=== PATIENT | female | born 1965 | race Two or more races ===

== ENCOUNTER 2019-06-10 07:37 | Day surgery (SDC) | payer OTHER ==
[~2019-06-10] VITALS: Ht 160 cm; Wt 63.5 kg
[2019-06-10] VITALS (9 sets, daily range): BP systolic 83–116; BP diastolic 49–81
[~2019-06-10 07:37] MED LIST: ceFAZolin sod 1gm in D5W 55ml IVPB ONE; celeBREX 200mg Cap **SURGERY PATIENTS ONLY ORAL ONE; oxyCONTIN 20mg tab ORAL ONE
[2019-06-10] MEDS ORDERED: celeBREX 200mg Cap **SURGERY PATIENTS ONLY ORAL ONE (08:58)
[2019-06-10] MEDS ORDERED: oxyCONTIN 20mg tab ORAL ONE (08:58)
[2019-06-10] MEDS ORDERED: fentaNYL 100 mcg/2 mL IV ONE (09:54)
[2019-06-10] MEDS ORDERED: Midazolam 2mg/2ml Inj ONE (09:55)
[2019-06-10] MEDS ORDERED: Ketorolac 30mg Inj ONE (09:55)
[2019-06-10] MEDS ORDERED: Propofol 200mg/20ml IV ONE (09:55)
[2019-06-10] MEDS ORDERED: Lidocaine 1% MPF 10mg/ml 5ml ONE (09:55)
[2019-06-10] MEDS ORDERED: LR 1000ml 1,000 ML IVLG SCH (10:07)
--- NOTE | 2019-06-10 10:07 | Anethesia Preoperative Eval ---
Anesthesia Pre-op PMH/ROS General Date of Evaluation: Jun 10, 2019 Time of Evaluation: 10:04 Anesthesiologist: Moni ASA Score: ASA 2 Mallampati Score Class I : Soft palate, uvula, fauces, pillars visible Class II: Soft palate, uvula, fauces visible Class III: Soft palate, base of uvula visible Class IV: Only hard plate visible Mallampati Classification: Class II Surgeon: Abdoulaye Diagnosis: R knee scope Surgical Procedure: R knee pain Anesthesia History: none Family History: no anesthesia problems Allergies: Coded Allergies: No Known Allergies (Unverified , 06/09/19) Medications: see eMAR Patient NPO?: Yes Past Medical History Cardiovascular: Denies: HTN, CAD, [place], valve dz, arrhythmia, other Pulmonary: Denies: asthma, COPD, RADHA, other Gastrointestinal/Genitourinary: Reports: GERD - mild; Denies: CRI, ESRD, other Neurologic/Psychiatric: Denies: dementia, CVA, depression/anxiety, TIA, other Endocrine: Denies: DM, hypothyroidism, steroids, other HEENT: Denies: cataract (L), cataract (R), glaucoma, [place] (L), [place] (R), other Hematology/Immune: Denies: anemia, DVT, bleeding disorder, other Musculoskeletal/Integumentary: Denies: OA, RA, DJD, DDD, edema, other PMH Narrative: as above PSxH Narrative: None Anesthesia Pre-op Phys. Exam Physician Exam Last Vital Signs Date Time Temp Pulse Resp B/P (MAP) Pulse Ox O2 Delivery O2 Flow Rate FiO2 06/10/19 09:05 97.2 74 18 113/68 99 Room Air Constitutional: NAD Neurologic: CN 2-12 intact Cardiovascular: RRR, no M/R/G Respiratory: CTA Gastrointestinal: S/NT/ND Airway Exam Mallampati Score: Class II MO: full Neck: flexible ROM: full Teeth: intact Dentures: no upper, no lower Anesthesia Pre-op A/P Studies Pre-op Studies: EKG - nsr Risk Assessment & Plan Assessment: ASA 2 Plan: GA with LMA Status Change Before Surgery: No Pre-Antibiotics Drug: Ancef 1gr. Given Within 1 Hr of Incision: Yes Time Given: 11:05 Danny Montenegro MD Jun 10, 2019 10:07
[2019-06-10] MEDS ORDERED: Meperidine 50mg/ml Inj(FOR RIGORS ONLY) IV PRN (10:15)
[2019-06-10] MEDS ORDERED: Ketorolac 30mg Inj IV PRN (10:15)
[2019-06-10] MEDS ORDERED: DiphenhydrAMINE 50mg/ml Inj IVP PRN (10:15)
[2019-06-10] MEDS ORDERED: Bupivacaine 0.25% Inj 30ml INJ ONE (10:57)
[2019-06-10] MEDS ORDERED: Kenalog-40 1ml Vial ONE (10:57)
[2019-06-10] MEDS ORDERED: Duramorph PF 5mg/10ml amp ONE (10:57)
[2019-06-10] MEDS ORDERED: Lidocaine 1% 10mg/ml/Epi 0.005mg/ml 30ml vial INJ ONE (10:57)
[2019-06-10] MEDS ORDERED: Sterile Water Irrig 1000ml IRRIG ONE (11:02)
[2019-06-10] MEDS ORDERED: NS Irrig 1000ml ONE (11:02)
[2019-06-10] MEDS ORDERED: LR 1000ml ONE (11:02)
[2019-06-10] MEDS ORDERED: NS Irrig 4000ml IRRIG ONE (11:02)
[2019-06-10] MEDS ORDERED: Duramorph PF 5mg/10ml amp IV ONE (11:13)
--- NOTE | 2019-06-10 11:28 | Pre-Procedure Note/Attestation ---
Pre-Procedure Note/Attestation Complete Prior to Procedure Planned Procedure: right Procedure Narrative: knee arthroscopy medial menisectomy Indications for Procedure Pre-Operative Diagnosis: right knee medial menisuc tear Attestation I attest that I discussed the nature of the procedure; its benefits; risks and complications; and alternatives (and the risks and benefits of such alternatives ), prior to the procedure, with the patient (or the patient's legal direct customer service representative). I attest that, if there was a reasonable possibility of needing a blood transfusion, the patient (or the patient's legal direct customer service representative) was given the [facility] standardized written summary, pursuant to the [place] Blood Safety Act ([place] Health and Safety Code # 1645, as amended). I attest that I re-evaluated the patient just prior to the surgery and that there has been no change in the patient's H&P, except as documented below: Uvaldo Stanford MD Jun 10, 2019 11:28
--- NOTE | 2019-06-10 11:29 | Operative Note - PDOC ---
Operative Note Operative Note Pre-op Diagnosis: right knee medial menisuc tear Procedure: see op Post-op Diagnosis: same as pre-op plus Operative Findings: consistent w/pre-op dx studies Anesthesia: MAC Specimen: none Complications: none Condition: stable Estimated Blood Loss: none Implant(s) used?: No Uvaldo Stanford MD Jun 10, 2019 11:28
[2019-06-10] MEDS ORDERED: HYDROmorphone 1mg/ml Carpuject SUBQ PRN (11:30)
[2019-06-10] MEDS ORDERED: HYDROcodone/Acetamin 5/325 tab ORAL PRN (11:30)
[2019-06-10] MEDS ORDERED: Tylenol #3 tab (300mg/30mg) ORAL PRN (11:30)
--- NOTE | 2019-06-10 12:04 | Immediate Post-Op Evaluation ---
Immediate Post-Op Evalulation Immediate Post-Op Evalulation Procedure: R knee arthroscopy meniscectomy Date of Evaluation: Jun 10, 2019 Time of Evaluation: 12:03 IV Fluids: 1000 Blood Products: none Estimated Blood Loss: min Urinary Output: none Blood Pressure Systolic: 102 Blood Pressure Diastolic: 56 Pulse Rate: 64 Respiratory Rate: 18 O2 Sat by Pulse Oximetry: 99 Temperature (Fahrenheit): 97.8 Pain Score (1-10): 1 Nausea: No Vomiting: No Complications none Patient Status: reacts, patent, none Hydration Status: adequate Danny Montenegro MD Jun 10, 2019 12:04
--- NOTE | 2019-06-10 13:12 | 48 Hour Post Anesthesia Eval ---
Post Anesthesia Evaluation Procedure: R knee arthroscopy meniscectomy Date of Evaluation: Jun 10, 2019 Time of Evaluation: 13:11 Blood Pressure Systolic: 104 0: 72 Pulse Rate: 68 Respiratory Rate: 20 Temperature (Fahrenheit): 97.6 O2 Sat by Pulse Oximetry: 98 Airway: patent Nausea: No Vomiting: No Pain Intensity: 1 Hydration Status: adequate Cardiopulmonary Status: stable Mental Status/LOC: patient returned to baseline Follow-up Care/Observations: n/a Post-Anesthesia Complications: none Follow-up care needed: ready to discharge Danny Montenegro MD Jun 10, 2019 13:12
[2019-06-10] MEDS ORDERED: D5 1/2NS 1,000 ML IV SCH (19:00)
--- NOTE | 2019-06-10 22:15 | Operative Note - Dictated ---
DATE OF OPERATION: 06/10/2019 PREOPERATIVE DIAGNOSES: 1. Right knee medial meniscus tear. 2. 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 POSTOPERATIVE DIAGNOSES: 1. Right knee medial meniscus tear. 2. 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 PROCEDURES: 1. Right knee diagnostic arthroscopy. 2. Right knee synovectomy, medial and lateral patellofemoral compartment. SURGEON: Uvaldo Stanford M.D. ANESTHESIA: MAC. INDICATION FOR PROCEDURE: The patient is a pleasant black female, who has had progressive right knee pain and tear of the meniscus. She failed conservative treatment. She elected to undergo right knee diagnostic arthroscopy and possible meniscectomy. Risks, limitations, expectations, complication of the procedure were discussed in detail. All questions addressed. DESCRIPTION OF PROCEDURE: After informed consent was obtained, the patient was brought to the operating room. The patient was placed under general anesthesia. Right leg was prepped and draped in a sterile manner. Time-out was performed. Ancef was administered. Inferolateral stab incision was then made. Trocar was introduced into the knee joint. There was hypertrophic synovial tissue making visualization more difficult. Medial compartment was entered. Medial working portal was established. The meniscus was probed, particularly the posterior horn. There was some fraying of the undersurface of the posterior aspect of the meniscus, but there was no gross subluxation detachment. There was no chondral damage. There was hypertrophic ligamentum mucosa and synovial tissue, which was debrided to better visualize the anterior horn intercondylar notch. It was extended the lateral compartment better to gain entrance into the lateral compartment. The ACL was probed and noted to be intact. Lateral compartment was entered and free of meniscal chondral damage. The camera was then placed in the patellofemoral compartment. Synovectomy was completed in the patellofemoral compartment, making visualization more possible. Patellofemoral compartment was then noted not to have any chondral damage. At this point, the instruments were removed. Portal sites were closed with 3-0 Monocryl sutures. Steri-Strips and a sterile dressing were applied. ESTIMATED BLOOD LOSS: None. COMPLICATIONS: None. SPECIMENS: None. Uvaldo Stanford M.D. DR: TERA JOB#: [id number] CC:
== END 2019-06-10 16:35 | disposition home or self-care (01) ==
LOC: SUR 07:37
DX: S83.241A Other tear of medial meniscus, current injury, right knee, initial encounter (principal); M67.261 Synovial hypertrophy, not elsewhere classified, right lower leg; K21.9 Gastro-esophageal reflux disease without esophagitis; X58.XXXA Exposure to other specified factors, initial encounter; Y92.9 Unspecified place or not applicable
CPT/HCPCS: 29876; J0690; J1885; J2250; J2704; J3010; J3301; J3490; J7120; 94003; 94150